=== PATIENT | male | born 1980 | race African-American/Black ===

== ENCOUNTER 2016-07-17 09:04 | Emergency (ER) | payer MEDICAID ==
[~2016-07-17] VITALS: Ht 188 cm; Wt 100.0 kg
[~2016-07-17 09:04] MED LIST: antibiotic
[2016-07-17] MEDS ORDERED: SODIUM CHLORIDE 0.9% 1,000 ML IV ONE (09:41)
[2016-07-17 10:09] LABS: DIFFERENTIAL COMMENT 1; HEMATOCRIT. 51.1 % (42.0-52.0); HEMOGLOBIN. 17.3 g/dL (14.0-18.0); MEAN CORPUSCULAR HEMOGLOBIN 29.4 pg (28.0-32.0); MEAN CORPUSCULAR HGB CONC 33.8 g/dL (31.0-37.0); MEAN PLATELET VOLUME 9.2 fl (7.4-10.4); PLATELET 200 x1000/uL (130-400); RED BLOOD CELL COUNT 5.88 mill/uL (4.7-6.1); RED CELL DISTRIBUTION WIDTH 13.8 % (11.6-14.6); WHITE BLOOD COUNT 7.2 x1000/uL (4.5-11.0)
[2016-07-17] MEDS ORDERED: KETOROLAC 60MG/2ML VIAL IM ONE (10:15)
[2016-07-17] MEDS ORDERED: ONDANSETRON HCL 4MG/2ML VIAL IV ONE (10:15)
[2016-07-17 10:17] LABS: INR 1.1; PROTHROMBIN TIME 11.4 sec
[2016-07-17 10:21] LABS: CHLORIDE 97 mEq/L (98-107); INDEX HEMOLYSI 1 (1-3); INDEX ICTERIC 1 (1-4); INDEX LIPEMIC 1 (1-3)
[2016-07-17 10:25] LABS: ALBUMIN 4.2 g/dL (3.4-5.0); ANION GAP 18; CALCIUM 9.6 mg/dL (8.5-10.1); CARBON DIOXIDE 26 mEq/L (21-32); LIPASE 720 IU/L (73-393); UREA NITROGEN BLOOD 15 mg/dL (7-21)
[2016-07-17 10:29] LABS: ALANINE AMINOTRANSFERASE 17 IU/L (13-61); eGFR > 60 mL/min (>60)
[2016-07-17 11:29] LABS: PLATELET ESTIMATE NORMAL
[2016-07-17] MEDS ORDERED: IOHEXOL-300 100 ML BOTTLE ONE (13:31)
[2016-07-17] MEDS ORDERED: SODIUM CHLORIDE 0.9% 10ML VIAL ONE (13:31)
[2016-07-17] MEDS ORDERED: FAMOTIDINE 20MG/2ML VIAL IV ONE (13:45)
[2016-07-17 14:13] LABS: CLARITY URINE CLEAR (CLEAR); COLOR URINE YELLOW (YELLOW); GLUCOSE URINE NEGATIVE (NEGATIVE); KETONES URINE 4+ (NEGATIVE); LEUKOCYTE ESTERASE URINE NEGATIVE (NEGATIVE); NITRITE URINE NEGATIVE (NEGATIVE); OCCULT BLOOD URINE NEGATIVE (NEGATIVE); PH URINE 5.5 (4.5-8.0); PROTEIN URINE TRACE (NEGATIVE); SPECIFIC GRAVITY URINE 1.074 (1.005-1.030)
[2016-07-17 14:15] LABS: BACTERIA URINE NONE SEEN; CALCIUM PHOSPHATE CRYSTALS UR NONE SEEN /lpf; RBC URINE 0-2 /hpf (0-2); SQUAMOUS EPITHELIAL CELL URINE NONE SEEN /lpf (RARE/1+); WAXY CASTS URINE NONE SEEN /lpf; WBC URINE NONE SEEN /hpf (0-2); YEAST URINE NONE SEEN
[2016-07-17] MEDS ORDERED: MORPHINE SULFATE 2 MG/ML CPJ (NOT FOR IM USE) IV ONE (14:15)
[2016-07-17 14:39] LABS: *AMPHETAMINES SCREEN URINE NEGATIVE (NEGATIVE); *BARBITURATES SCREEN URINE NEGATIVE (NEGATIVE); *BENZODIAZEPINES SCREEN URINE NEGATIVE (NEGATIVE); *COCAINE SCREEN URINE NEGATIVE (NEGATIVE); CANNABINOID URINE SCREEN PRESUMTIVE POSITIVE (NEGATIVE); ECSTASY MDMA SCREEN URINE NEGATIVE (NEGATIVE); METHADONE URINE SCREEN NEGATIVE (NEGATIVE); OPIATES URINE SCREEN NEGATIVE (NEGATIVE); PHENCYCLIDINE URINE SCREEN NEGATIVE (NEGATIVE)
[2016-07-17 15:41] VITALS: BP 149/93
== END 2016-07-17 15:55 | disposition home or self-care (01) ==
LOC: ER 09:29
DX: K29.00 Acute gastritis without bleeding (principal); R74.8 Abnormal levels of other serum enzymes; R10.9 Unspecified abdominal pain; F12.929 Cannabis use, unspecified with intoxication, unspecified; Z87.891 Personal history of nicotine dependence
CPT/HCPCS: 36415; 74177; 80053; 80305; 81001; 83690; 85025; 85610; 86850; 86900; 86901; 99285; A4216; J1885; J2405; J3490; Q9967; J2270; J7030

== ENCOUNTER 2018-08-16 19:44 | Emergency (ER) | payer MEDICAID ==
[~2018-08-16] VITALS: Ht 188 cm; Wt 114.0 kg
[2018-08-17] MEDS ORDERED: ONDANSETRON HCL 4MG/2ML INJ IV STA (00:41)
[2018-08-17] MEDS ORDERED: SODIUM CHLORIDE 0.9% 1,000 ML IV ONE (00:41)
[2018-08-17] MEDS ORDERED: MORPHINE SULFATE 4 MG/ML CPJ (NOT FOR IM USE) IV STA (00:41)
[2018-08-17 01:01] LABS: BASOPHILS % 0.5 % (0.0-2.0); EOSINOPHILS % 0.3 % (0.0-5.0); HEMATOCRIT. 49.2 % (42.0-52.0); HEMOGLOBIN. 16.6 g/dL (14.0-18.0); LYMPHOCYTES % 15.5 % (20.0-50.0); MEAN CORPUSCULAR HEMOGLOBIN 29.9 pg (28.0-32.0); MEAN CORPUSCULAR VOLUME 88.8 fL (80.0-94.0); MEAN PLATELET VOLUME 9.5 fl (7.4-10.4); NEUTROPHILS % 80.7 % (40.0-76.0); PLATELET 184 x1000/uL (130-400); RED BLOOD CELL COUNT 5.54 mill/uL (4.7-6.1); RED CELL DISTRIBUTION WIDTH 14.3 % (11.6-14.6)
[2018-08-17 01:05] LABS: CHLORIDE 105 mEq/L (98-107)
[2018-08-17 01:22] LABS: CLARITY URINE CLEAR (CLEAR); COLOR URINE YELLOW (YELLOW); KETONES URINE 3+ (NEGATIVE); LEUKOCYTE ESTERASE URINE NEGATIVE (NEGATIVE); NITRITE URINE NEGATIVE (NEGATIVE); OCCULT BLOOD URINE NEGATIVE (NEGATIVE); PH URINE 5.5 (4.5-8.0); PROTEIN URINE TRACE (NEGATIVE); SPECIFIC GRAVITY URINE 1.031 (1.005-1.030)
[2018-08-17 04:55] VITALS: BP 107/68
== END 2018-08-17 04:56 | disposition home or self-care (01) ==
LOC: ER 19:44
DX: K29.70 Gastritis, unspecified, without bleeding (principal); F12.10 Cannabis abuse, uncomplicated
CPT/HCPCS: 36415; 80053; 81003; 83690; 85025; 96361; 96374; 96375; 99283; J2270; J2405; J7030; Z7610

== ENCOUNTER 2022-11-17 18:24 | Emergency (ER) | payer OTHER ==
[~2022-11-17] VITALS: Ht 188 cm; Wt 111.0 kg
[~2022-11-17 18:24] MED LIST changes: +LEVO-65 MT; -antibiotic
[2022-11-17 18:37] VITALS: O2SAT 97
[2022-11-17] MEDS ORDERED: BACITRACIN ZINC OINT UDPKT TOP ONE (20:00)
[2022-11-17] MEDS ORDERED: LIDOCAINE HCL/PF 1% 10 MG/ML 5ML VIAL INFIL ONE (20:00)
[2022-11-17] MEDS ORDERED: KETOROLAC 60MG/2ML VIAL IM ONE (20:00)
[2022-11-17] MEDS ORDERED: LIDOCAINE HCL/EPINEPHRINE 1%-EPI 1:100,000 20 ML VIAL INFIL ONE (20:00)
[2022-11-17 21:31] VITALS: BP 119/84
[2022-11-17] MEDS ORDERED: CEPH500C2 MT (23:02)
[2022-11-17] MEDS ORDERED: AMOX1TAB16 MT (23:02)
[2022-11-17 23:44] VITALS: PULSE 98; RESP 18; TEMP 98.4
== END 2022-11-17 23:47 | disposition home or self-care (01) ==
LOC: ER 18:24
DX: K61.0 Anal abscess (principal)
CPT/HCPCS: 10060; 96372; 99283; J1885; J3490; Z7610 ×6